=== PATIENT | female | born 1985 | race Caucasian/White ===

== ENCOUNTER 2019-10-03 18:05 | Emergency (ER) | payer BC ==
[~2019-10-03] VITALS: Ht 154.9 cm; Wt 54.4 kg
[2019-10-03] MEDS ORDERED: CYCLOBENZAPRINE10 MG PO (19:30)
[2019-10-03] MEDS ORDERED: LIDOCAINE PAIN1 EACH TRANSDERM (19:30)
[2019-10-03] MEDS ORDERED: NORCO 5-325 TA1 EAC1 PO (19:30)
[2019-10-03 20:08] VITALS: BP 128/79
== END 2019-10-03 20:09 | disposition home or self-care (01) ==
LOC: ER 18:05
DX: M54.5 Low back pain (principal); F17.210 Nicotine dependence, cigarettes, uncomplicated